=== PATIENT | male | born 1975 | race Caucasian/White ===

== ENCOUNTER 2017-01-11 15:51 | Emergency (ER) | payer SELFPAY ==
[~2017-01-11] VITALS: Ht 185.4 cm; Wt 95.0 kg
[2017-01-11] MEDS ORDERED: KETOROLAC 60MG/2ML VIAL IM ONE (17:30)
[2017-01-11 17:43] VITALS: BP 129/83
== END 2017-01-11 17:57 | disposition home or self-care (01) ==
LOC: ER 16:05
DX: S16.1XXA Strain of muscle, fascia and tendon at neck level, initial encounter (principal); V43.02XA Car driver injured in collision with other type car in nontraffic accident, initial encounter; Y92.481 Parking lot as the place of occurrence of the external cause; Z88.0 Allergy status to penicillin; Z88.2 Allergy status to sulfonamides; Z91.048 Other nonmedicinal substance allergy status
CPT/HCPCS: 96372; 99283; J1885; J7030; Z7610